=== PATIENT | male | born 1945 | race Two or more races ===

== ENCOUNTER 2019-04-14 11:11 | Emergency (ER) | payer OTHER, MEDICAID ==
[~2019-04-14] VITALS: Ht 167.6 cm; Wt 66.7 kg
[2019-04-14 12:53] LABS: Basophils # (auto) 0 uL; Basophils % (auto) 0.2 % (0.0-2.0); Eosinophils # (auto) 0.1 uL; Hematocrit 34.9 % (41.0-53.0); Hemoglobin 11.4 g/dL (13.5-17.5); Lymphocytes # (auto) 1.4 uL; Lymphocytes % (auto) 9.5 % (10.0-50.0); Mean Corpuscular Hemoglobin 30.3 pg (28.0-32.0); Mean Corpuscular Hgb Conc. 32.6 g/dL (32.0-36.0); Mean Corpuscular Volume 93.2 fL (80.0-100.0); Monocytes # (auto) 1.6 uL; Monocytes % (auto) 10.9 % (0.0-12.0); Neutrophils # (auto) 11.2 uL; Neutrophils % (auto) 78.4 % (37.0-80.0); Platelet Count (auto) 390 10^3/uL (140-450); Red Blood Cells 3.75 10^6/uL (4.5-5.90); Red Cell Distribution Width 15.5 % (11.8-14.3); White Blood Cell 14.3 10^3/uL (4.4-10.8)
[2019-04-14 13:05] LABS: Albumin 3.2 g/dL (3.4-5.0); Anion Gap 8 (5-15); Blood Urea Nitrogen 41 mg/dL (7-18); Calcium 9.1 mg/dL (8.5-10.1); Carbon Dioxide 24 mmol/L (21-32); Chloride 104 mmol/L (98-107); Glucose 108 mg/dL (74-106); Potassium 4.4 mmol/L (3.5-5.1); Sodium 136 mmol/L (136-145)
[2019-04-14 13:10] LABS: Alanine Aminotransferase 16 U/L (16-61); Alkaline Phosphatase 68 U/L (45-117); Aspartate Aminotransferase 18 U/L (15-37); BUN/Creatinine Ratio 23.3; Bilirubin, Total 0.5 mg/dL (0.2-1.0); GFR African American 49 mL/min; GFR Non-African American 41 mL/min; Total Protein 8.9 g/dL (6.4-8.2)
[2019-04-14 13:19] LABS: Lactic Acid w/Reflex 2.7 mmol/L (0.4-2.0)
[2019-04-14] MEDS ORDERED: SODIUM CHLORIDE 0.9% 2,000 ML IV ONE (16:15)
[2019-04-14] MEDS ORDERED: LEVOFLOXACIN 500MG 100 ML IV ONE (16:15)
[2019-04-14 21:16] VITALS: BP 123/67
== END 2019-04-14 21:46 | disposition short-term general hospital (02) ==
LOC: ER 11:11
DX: J18.9 Pneumonia, unspecified organism (principal); A41.9 Sepsis, unspecified organism; R74.0 Nonspecific elevation of levels of transaminase and lactic acid dehydrogenase [LDH]; I10 Essential (primary) hypertension; Z85.118 Personal history of other malignant neoplasm of bronchus and lung
CPT/HCPCS: 36415; 71046; 80053; 83605; 83880; 84484; 85025; 87040; 93005; 96365; 99291; J1956; J7030

== ENCOUNTER 2023-02-08 13:06 | Emergency (ER) | payer MEDICAID, OTHER ==
[~2023-02-08] VITALS: Ht 167.6 cm; Wt 79.5 kg
[2023-02-08] MEDS ORDERED: ASPirin 81 mg TAB PO ONE (13:30)
[2023-02-08 13:36] LABS: Basophils # (auto) 0.1 10 ^3/uL (0-0.2); Basophils % (auto) 0.4 % (0.0-2.0); Eosinophils # (auto) 0.1 10 ^3/uL (0-0.8); Eosinophils % (auto) 0.9 % (0.0-7.0); Hematocrit 42.6 % (41.0-53.0); Hemoglobin 14.2 g/dL (13.5-17.5); Lymphocytes # (auto) 1.5 10 ^3/uL (0.4-5.4); Lymphocytes % (auto) 12.6 % (10.0-50.0); Mean Corpuscular Hemoglobin 29.5 pg (28.0-32.0); Mean Corpuscular Hgb Conc. 33.3 g/dL (32.0-36.0); Mean Corpuscular Volume 88.7 fL (80.0-100.0); Monocytes # (auto) 1.2 10 ^3/uL (0-1.3); Monocytes % (auto) 10.2 % (0.0-12.0); Neutrophils # (auto) 9.2 10 ^3/uL (1.6-8.6); Neutrophils % (auto) 75.9 % (37.0-80.0); Red Cell Distribution Width 14.9 % (11.8-14.3); White Blood Cell 12.2 10^3/uL (4.4-10.8)
[2023-02-08 13:50] LABS: Alanine Aminotransferase 13 U/L (7-40); Alkaline Phosphatase 76 U/L (46-116); Carbon Dioxide 27 mmol/L (20-30); Chloride 105 mmol/L (98-107); Glucose 131 mg/dL (74-106)
[2023-02-08 13:51] LABS: Albumin 4.7 g/dL (3.2-4.8); Anion Gap 7 (5-15); Aspartate Aminotransferase 9 U/L (13-40); Bilirubin, Total 0.7 mg/dL (0.2-1.0); Blood Urea Nitrogen 20 mg/dL (9-23); Potassium 3.5 mmol/L (3.5-5.1); Sodium 139 mmol/L (136-145); Total Protein 7.1 g/dL (5.7-8.2)
[2023-02-08 13:54] LABS: INR 1.05 (0.9-1.15); Partial Thromboplastin Time 30.2 SEC (24.5-34.5)
[2023-02-08] MEDS ORDERED: ASPirin 81 mg TAB ONE (15:40)
[2023-02-08 15:41] VITALS: PULSE 80
[2023-02-08 15:54] VITALS: BP 127/70; PULSE 84; RESP 16; TEMP 98; O2SAT 97
== END 2023-02-08 16:01 | disposition home or self-care (01) ==
LOC: ER 13:06 → EDBD 13:06 → ER 16:01
DX: R07.89 Other chest pain (principal); I10 Essential (primary) hypertension; E78.5 Hyperlipidemia, unspecified
CPT/HCPCS: 36415; 71045; 80053; 84484; 85025; 85610; 85730; 93005